=== PATIENT | male | born 1930 | race Caucasian/White ===

== ENCOUNTER → 2016-11-26 | Outpatient (CLI) | payer MEDICARE ==
[2016-11-26 11:37] LABS: Blood Urea Nitrogen 21 mg/dL (9-20); Non-African American GFR(MDRD) 53 (>60 ml/min/1.73 sqM)
== END | disposition home or self-care (01) ==
LOC: LABWHC1 10:53
PROVIDERS: ATTEND Surgery
DX: D49.9 Neoplasm of unspecified behavior of unspecified site (principal)
CPT/HCPCS: 36415; 82378; 82565; 84520

== ENCOUNTER → 2016-11-27 | Outpatient (CLI) | payer MEDICARE ==
--- NOTE | 2016-11-27 15:47 | CT ---
EXAMINATION TYPE: CT abdomen pelvis w con DATE OF EXAM: 11/27/2016 3:10 PM COMPARISON: 06/19/2016 HISTORY: 85-year-old male with no complaints at time of service. Follow up study for cecal CA. TECHNIQUE: Contiguous axial scanning of the abdomen and pelvis following administration of 100 ml Omn ipaque 300 IV contrast. Delayed images through the kidneys and coronal/sagittal reconstructions perf ormed. CT DLP: 1195 mGycm Automated exposure control for dose reduction was used. FINDINGS: Heart is normal size without pericardial effusion. Mitral annular calcifications are noted. Tiny hiatal hernia. Small right-sided pleural effusion remains. Interval complete to near complete healing change of the multiple right-sided rib fractures. There is a new area 1.7 x 4.7 cm subpleural masslike area of cons olidation at the posterior right base. Chronic appearing interstitial changes are also present. Scattered calcified granulomas within the liver without focal liver lesion. Portal venous system is p atent. No biliary ductal dilatation. Gallbladder, adrenal glands, and mildly atrophic pancreas show no gross abnormality. Numerous calcifi ed granulomas within the spleen. Stable 1.1 cm anterior right renal cyst and stable tiny subcentimeter hypodensity anterior left kidne y also likely a cyst but too small for accurate CT characterization. Incidental retroaortic left renal vein. No dilated small bowel, free fluid, or free air. Normal appendix. No clear cecal tumor is identified. Scattered mild to moderate stool. No pericolonic inflammatory change. [id number] atherosclerotic calcifications within the abdominal aorta without aneurysm. No mesenteric or retroperitoneal lymphadenopathy. Soft tissue stranding within the subcutaneous fat of the anterior midabdomen likely relating to subcu taneous injections. Bladder partially distended. Mildly enlarged 4.1 cm prostate gland with central calcifications. No ab normal fluid collection in the pelvis or pelvic lymphadenopathy seen. There is a 7 mm nodular area of enhancement along the right paramedian aspect of the corpus spongiosu m, axial image 86 of uncertain clinical significance. Bones: Degenerative changes at the hips and lower lumbar spine. No osseous destructive process. IMPRESSION: 1. NO DISCRETE CECAL TUMOR SEEN. NO SUSPICIOUS LYMPHADENOPATHY. 2. A 7 MM NODULAR AREA OF ENHANCEMENT ALONG THE CORPUS SPONGIOSUM IS OF UNCERTAIN CLINICAL SIGNIFICAN CE. ATTENTION ON FOLLOW-UP. SOFT TISSUE METASTASIS IS POSSIBLE BUT CONSIDERED UNLIKELY. 3. HEALED TO NEARLY HEALED MULTIPLE RIGHT-SIDED RIB FRACTURES WITH A RESIDUAL SMALL RIGHT PLEURAL EFF USION. THERE IS NEW 4.7 CM AREA OF MASSLIKE CONSOLIDATION AT THE RIGHT BASE JUST ADJACENT THAT COULD REPRESENT AN AREA OF ROUNDED ATELECTASIS. PERSISTENT PULMONARY CONTUSION CONSIDERED UNLIKELY. THIS CA N ALSO BE REASSESSED AT FOLLOW-UP. 4. PRIOR GRANULOMATOUS DISEASE.
== END | disposition home or self-care (01) ==
LOC: RADCTMAIN 14:33
PROVIDERS: ATTEND Surgery
DX: C18.0 Malignant neoplasm of cecum (principal)
CPT/HCPCS: 74177; Q9967

== ENCOUNTER → 2018-06-14 | Outpatient (CLI) | payer MEDICARE ==
[2018-06-14 11:00] LABS: Basophils # (A) 0.1 k/uL (0-0.2); Basophils % (A) 1 %; Eosinophils # (A) 0.4 k/uL (0-0.7); Eosinophils % (A) 5 %; HCT 37.7 % (39.0-53.0); HGB 12.8 gm/dL (13.0-17.5); Lymphocytes # (A) 1.6 k/uL (1.0-4.8); Lymphocytes % (A) 19 %; MCHC 33.9 g/dL (31.0-37.0); MCV 88.7 fL (80.0-100.0); Mean Platelet Volume 7.2; Monocytes # (A) 0.4 k/uL (0-1.0); Monocytes % (A) 5 %; Neutrophils # (A) 6.1 k/uL (1.3-7.7); Neutrophils % (A) 70 %; Platelet Count 255 k/uL (150-450); RBC 4.25 m/uL (4.30-5.90); WBC 8.8 k/uL (3.8-10.6)
[2018-06-14 11:19] LABS: Albumin 3.8 g/dL (3.5-5.0); Calcium 9.5 mg/dL (8.4-10.2); Potassium 5.1 mmol/L (3.5-5.1); Total Bilirubin 0.3 mg/dL (0.2-1.3); Total Protein 7.2 g/dL (6.3-8.2)
[2018-06-14 17:15] LABS: Hemoglobin A1C 6.8 % (4.0-6.0)
== END | disposition home or self-care (01) ==
LOC: LABWHC1 09:39
PROVIDERS: ATTEND Internal Medicine
DX: E11.9 Type 2 diabetes mellitus without complications (principal); E78.5 Hyperlipidemia, unspecified; I10 Essential (primary) hypertension; D50.9 Iron deficiency anemia, unspecified
CPT/HCPCS: 36415; 80053; 80061; 83036; 84443; 85025

== ENCOUNTER 2018-06-19 11:15 | Emergency (ER) | payer MEDICARE ==
[2018-06-19 11:34] VITALS: BP 173/66; PULSE 72; RESP 18; TEMP 97.8
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
--- NOTE | 2018-06-19 13:36 | US ---
EXAMINATION TYPE: US scrotum with doppler. Grayscale and color Doppler Duplex imaging performed of t marianne scrotum. DATE OF EXAM: 06/19/2018 COMPARISON: NONE CLINICAL HISTORY: Pain. EXAM MEASUREMENTS: TESTICLES: Right Testicle: 3.4 x 2.7 x 3.2 cm Left Testicle: 2.6 x 2.2 x 2.6 cm EPIDIDYMIS HEAD: Right Epididymis: 0.8 x 1.1 x 0.7 cm Left Epididymis: 0.7 x 1.1 x 0.7 cm Doppler performed to assess for testicular vascularity; good bilateral color flow and waveforms are s een. There is no evidence of testicular torsion. Presence of hydroceles: Yes, on right Presence of varicoceles: No Overall echogenicity of left testicle is heterogeneous. Left testicle is mildly heterogenous. There is normal vascular flow to both testicles. There is a mod erate right-sided hydrocele. Both epididymides are normal. IMPRESSION: 1. MILD HETEROGENOUS APPEARANCE TO THE LEFT TESTICLE MAY REFLECT EDEMA. UROLOGIC CONSULT WOULD BE SUG GESTED. 2. MODERATE RIGHT-SIDED HYDROCELE.
[2018-06-19 13:44] LABS: Basophils # (A) 0.1 k/uL (0-0.2); Basophils % (A) 1 %; Eosinophils # (A) 0.2 k/uL (0-0.7); Eosinophils % (A) 1 %; HCT 39.5 % (39.0-53.0); HGB 12.9 gm/dL (13.0-17.5); Lymphocytes # (A) 1.5 k/uL (1.0-4.8); Lymphocytes % (A) 13 %; MCH 29.8 pg (25.0-35.0); MCHC 32.5 g/dL (31.0-37.0); MCV 91.5 fL (80.0-100.0); Mean Platelet Volume 7.5; Monocytes # (A) 0.4 k/uL (0-1.0); Monocytes % (A) 4 %; Neutrophils # (A) 9.1 k/uL (1.3-7.7); Neutrophils % (A) 80 %; Platelet Count 240 k/uL (150-450); RBC 4.32 m/uL (4.30-5.90); RDW 12.9 % (11.5-15.5); WBC 11.3 k/uL (3.8-10.6)
[2018-06-19 13:45] LABS: Albumin 3.9 g/dL (3.5-5.0); Calcium 9.7 mg/dL (8.4-10.2); Potassium 5.1 mmol/L (3.5-5.1); Total Bilirubin 0.4 mg/dL (0.2-1.3); Total Protein 7.3 g/dL (6.3-8.2)
[2018-06-19 13:48] LABS: Partial Thromboplastin Time 23.2 sec (22.0-30.0); Prothrombin Time 9.6 sec (9.0-12.0)
[2018-06-19 13:50] LABS: Appearance,Urine Clear (Clear); Bilirubin,Urine Negative (Negative); Blood,Urine Small (Negative); Color,Urine Yellow; Glucose,Urine (UA) 3+ (Negative); Ketones,Urine Negative (Negative); Leukocyte Esterase,Urine Negative (Negative); Mucus,Urine Rare /hpf; Nitrite,Urine Negative (Negative); Protein,Urine 2+ (Negative); RBC,Urine 6 /hpf (0-5); Specific Gravity,Urine 1.015 (1.001-1.035); Urobilinogen,Urine <2.0 mg/dL (<2.0); WBC,Urine 1 /hpf (0-5)
--- NOTE | 2018-06-19 14:04 | XR ---
EXAMINATION TYPE: XR KUB , 2 VIEWS DATE OF EXAM ORDERED: 06/19/2018 HISTORY: abdominal pain. COMPARISON: None. FINDINGS: I suspect a small right-sided pleural effusion. Within the abdomen, the abdominal gas pattern is within normal limits. There is colonic interposition on the left. There is no evidence of obstruction or free air. No unusual calcifications are seen. IMPRESSION: FINDINGS SUSPICIOUS FOR A RIGHT-SIDED PLEURAL EFFUSION.
== END 2018-06-19 14:35 | disposition home or self-care (01) ==
LOC: EC 11:15
DX: N50.82 Scrotal pain (principal); N43.3 Hydrocele, unspecified; S76.211A Strain of adductor muscle, fascia and tendon of right thigh, initial encounter; E11.9 Type 2 diabetes mellitus without complications; E78.5 Hyperlipidemia, unspecified; I10 Essential (primary) hypertension; Z79.4 Long term (current) use of insulin; Z79.899 Other long term (current) drug therapy; X50.9XXA Other and unspecified overexertion or strenuous movements or postures, initial encounter
CPT/HCPCS: 36415; 74018; 76870; 80053; 81001; 82150; 83690; 85025; 85610; 85730; 93975; 99284

== ENCOUNTER 2018-06-22 21:22 | Emergency (ER) | payer MEDICARE ==
[2018-06-22 21:33] VITALS: BP 186/72; PULSE 62; TEMP 97.5
[2018-06-22] MEDS ORDERED: MORPHINE SULFATE 2 MG/ML SYRINGE IVP STA (21:46)
[2018-06-22] MEDS ORDERED: MORPHINE SULFATE 2 MG/ML SYRINGE IM STA (21:54)
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
--- NOTE | 2018-06-22 23:32 | CT ---
EXAMINATION TYPE: CT pelvis w con DATE OF EXAM: 06/22/2018 COMPARISON: 11/27/2016 HISTORY: Prior on A/P on synapse, right sided groin pain CT DLP: 464.70 mGycm Automated exposure control for dose reduction was used. CONTRAST: Performed with IV Contrast, patient injected with 100 mL of Isovue 300. FINDINGS: There is right-sided ventral hernia that is lateral to the umbilicus. This measures 6.5 x 2.5 cm with loops of bowel. I see no evidence of a bowel obstruction related to the hernia. There are some mildl y distended loops of small bowel in the lower abdomen. Abdominal aorta is atheromatous. I see no pelv ic lymphadenopathy. Bladder distends smoothly. 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 I see no fracture. Pelvic ring is intact. There is no inguinal hernia. There is no evide nce of a pelvic mass. Calcification. There is no inguinal hernia. There are some surgical clips aroun d the cecal area which apparently has been partly resected. IMPRESSION: NO EVIDENCE OF MECHANICAL BOWEL OBSTRUCTION. THERE IS RIGHT-SIDED VENTRAL HERNIA THAT CONTAINS SOME L OOPS OF BOWEL. NO EVIDENCE OF ANY SIGNIFICANT INCARCERATION. I do not see a cause for lower pelvic pa in.
[2018-06-22 23:41] VITALS: RESP 16
== END 2018-06-22 23:25 | disposition home or self-care (01) ==
LOC: EC 21:22
DX: S76.811A Strain of other specified muscles, fascia and tendons at thigh level, right thigh, initial encounter (principal); R10.31 Right lower quadrant pain; N50.89 Other specified disorders of the male genital organs; E11.9 Type 2 diabetes mellitus without complications; E78.5 Hyperlipidemia, unspecified; I10 Essential (primary) hypertension; Z79.4 Long term (current) use of insulin; Z79.899 Other long term (current) drug therapy; Z87.438 Personal history of other diseases of male genital organs; Z87.19 Personal history of other diseases of the digestive system; X50.9XXA Other and unspecified overexertion or strenuous movements or postures, initial encounter; Y93.89 Activity, other specified
CPT/HCPCS: 72193; 99284; 96372; J2270; Q9967

== ENCOUNTER → 2018-07-14 | Outpatient (CLI) | payer MEDICARE ==
[2018-07-14 13:56] LABS: Basophils # (A) 0.1 k/uL (0-0.2); Basophils % (A) 1 %; Eosinophils # (A) 0.4 k/uL (0-0.7); Eosinophils % (A) 5 %; HCT 37.9 % (39.0-53.0); HGB 12.6 gm/dL (13.0-17.5); Lymphocytes # (A) 1.7 k/uL (1.0-4.8); Lymphocytes % (A) 22 %; MCH 30.6 pg (25.0-35.0); MCHC 33.4 g/dL (31.0-37.0); MCV 91.7 fL (80.0-100.0); Mean Platelet Volume 7.1; Monocytes # (A) 0.4 k/uL (0-1.0); Monocytes % (A) 6 %; Neutrophils % (A) 66 %; Platelet Count 231 k/uL (150-450); RBC 4.13 m/uL (4.30-5.90); RDW 13.2 % (11.5-15.5); WBC 7.6 k/uL (3.8-10.6)
[2018-07-14 18:53] LABS: Albumin 3.9 g/dL (3.80-4.90); Albumin/Globulin Ratio 1.63 (1.20-2.10); Anion Gap 2.5 mmol/L (4.00-12.00); Calcium 9.2 mg/dL (8.7-10.3); Carbon Dioxide 30.5 mmol/L (21.6-31.8); Globulin 2.4 g/dL (2.1-3.7); Potassium 5.2 mmol/L (3.5-5.5); Total Bilirubin 0.2 mg/dL (0.2-1.2); Total Protein 6.3 g/dL (6.2-8.2)
== END | disposition home or self-care (01) ==
LOC: LABWHC1 12:22
PROVIDERS: ATTEND Internal Medicine
DX: D50.9 Iron deficiency anemia, unspecified (principal); N18.3 Chronic kidney disease, stage 3 (moderate); D63.1 Anemia in chronic kidney disease
CPT/HCPCS: 36415; 80053; 85025

== ENCOUNTER → 2020-07-26 | Outpatient (CLI) | payer MEDICARE ==
[2020-07-26 15:47] LABS: HCT 37.1 % (39.0-53.0); HGB 12.2 gm/dL (13.0-17.5); MCH 29.9 pg (25.0-35.0); MCHC 32.8 g/dL (31.0-37.0); MCV 91.1 fL (80.0-100.0); Mean Platelet Volume 7.7; Platelet Count 279 k/uL (150-450); RBC 4.07 m/uL (4.30-5.90); RDW 13.7 % (11.5-15.5); WBC 8.5 k/uL (3.8-10.6)
[2020-07-26 15:56] LABS: Potassium 4.9 mmol/L (3.5-5.1)
== END | disposition home or self-care (01) ==
LOC: LABPAT 14:59
PROVIDERS: ATTEND Internal Medicine
DX: Z03.818 Encounter for observation for suspected exposure to other biological agents ruled out (principal); I35.0 Nonrheumatic aortic (valve) stenosis
CPT/HCPCS: 36415; 80051; 82565; 84520; 85027

== ENCOUNTER → 2020-08-08 | Day surgery (SDC) | payer MEDICARE ==
[2020-07-31 11:53] VITALS: BMI 26.8
[~2020-08-08] MED LIST: ALPRAZolam 0.25 MG TAB PO PRN; ALPRAZolam 0.5 MG TAB PO PRN; ASPIRIN 325 MG TAB PO STA; ASPIRIN 81 MG ONE; ASPIRIN 81 MG PO ONE; ATORVASTATIN 80 MG TAB PO STA; HEPARIN SODIUM 1,000 UN/ML (10ML VL) ONE; IOPAMIDOL-370 125ML BTL INJ ONE; IV FLUID CONTINUATION 700 ML IV ONE; LIDOCAINE 1% INJ 10MG/ML (20 ML MDV) SQ ONE; MIDAZOLAM 2 MG/2 ML VIAL IV ONE; NITROGLYCERIN SL TABS 0.4 MG TAB SUBLINGUAL PRN; RX INFO: IV CONTRAST WAS GIVEN 1 EACH MISC MISCELLANE PRN; SODIUM CHLORIDE 0.9% 1,000 ML IV ONE; SODIUM CHLORIDE 0.9% 1,000 ML IV SCH; SODIUM CHLORIDE 0.9% 1,000 ML in EMPTY BAG 1 BAG IV ONE; fentaNYL (PF) 50 MCG/ML 2 ML AMP IV ONE; fentaNYL (PF) 50 MCG/ML 2 ML AMP ONE
[2020-08-08 06:34] VITALS: TEMP 98.3
[2020-08-08 06:36] LABS: Glucose,Whole Blood 98 mg/dL (75-99)
[2020-08-08] MEDS: fentaNYL (PF) 50 MCG/ML 2 ML AMP IV ONE ×2 (07:26→08:35)
--- NOTE | 2020-08-08 07:57 | P.TEE ---
Description of Procedure(s): Procedure performed: Transesophageal Echocardiogram with color flow doppler, pulsed wave doppler and continuous wave doppler, moderate conscious sedation Moderate conscious sedation: Moderate conscious sedation was supplied with direct supervision of myself using Versed and Fentanyl. Complications: none Indications: Severe symptomatic aortic stenosis History: Patient is a pleasant 89-year-old male with history of chronic kidney disease, prior hypertension since off of medications, hyperlipidemia off of medications and severe aortic stenosis who has recently been developing symptoms of shortness of breath over the last 1 month. He had 2-D echo performed which showed severe aortic stenosis and therefore YVES was recommended for evaluation for TAVR. PROCEDURE: After the risks, benefits and alternatives of the above mentioned procedure was explained in detail with the patient, informed consent was obtained. Patient was brought to the lab in a fasting state. Patient was given IV Versed and Fentanyl for sedation. The throat was sprayed with Hurricane to anesthetize the throat. A lubricated Omni probe was then introduced into the esophagus and stomach and multiple views were obtained. 2D echo with color flow doppler, pulsed wave doppler and continuous wave doppler was utilized. Agitated saline bubbles were injected to assess for any intra-atrial shunt. The probe was then removed. Patient tolerated the procedure well. Patient was transferred to the post procedure area in stable and satisfactory condition. FINDINGS: 1. The aortic valve is severely calcified with severe decrease leaflet excursion. There is severe aortic stenosis with Vmax 5.1m/s and mean gradient of 63mmHg. There is mild to moderate eccentric aortic insufficiency. 2. The mitral valve appears be normal with mild mitral regurgitation. 3. Tricuspid valve appears to be normal with trace check acid regurgitation. 4. The interatrial septum is intact. No evidence of PFO. 5. Left atrial appendage is free of clot. 6. Left ventricular size and function appear to be normal with ejection fraction 60% without wall motion abnormalities.
[2020-08-08] MEDS: MIDAZOLAM 2 MG/2 ML VIAL IV ONE ×2 (08:03→08:36)
[2020-08-08 08:49] LABS: O2 Sat Blood Gas 76.4 %
[2020-08-08 08:55] LABS: O2 Sat Blood Gas 55.8 %
--- NOTE | 2020-08-08 09:22 | P.CARDCATH ---
Description of Procedure: PROCEDURES PERFORMED: Left heart catheterization, bilateral coronary angiography, right heart catheterization, ultrasound guidance INDICATION: Severe symptomatic aortic stenosis HISTORY: Patient is a pleasant 89-year-old male with history of prior hypertension since off of medications, hyperlipidemia off of medications, chronic kidney disease and severe aortic stenosis who has been very active up until approximately 1 month ago when he started noticing shortness breath. He had 2-D echo performed which showed severe aortic stenosis and therefore left and right heart catheterization were recommended. Risks of possible kidney injury were explained in detail with patient and his daughter. CONSENT:I have discussed the risks, benefits and alternative therapies for the above-mentioned procedure and for both sedation/analgesia as well as necessary blood product administration, if indicated, as they pertain to this patient. The patient has indicated understanding and acceptance of the risks and procedures discussed. PROCEDURE: After the risks, benefits and alternatives of the above mentioned procedure explained in detail with the patient, informed consent was obtained. Patient was taken to the catheterization lab and prepped and draped in usual fashion. 1% lidocaine was used to anesthetize the right radial artery. A 6- [place] Konger sheath was placed in the right radial artery using modified Seldinger technique. 1% lidocaine was used to anesthetize the right brachial area. A 6- [place]er sheath was placed in the right brachial vein using modified Seldinger technique and ultrasound guidance. Right heart catheterization was performed with a 6-Hong Konger Union Star-Joel catheter which was inserted in the right atrium, right ventricle, pulmonary artery and pulmonary capillary wedge position with pressure measurements obtained. A pulmonary artery saturation and right radial saturation were obtained for cardiac output calculation. Left coronary angiography was performed with a 6-H[place] Konger JL 3.5 catheter and right coronary angiography was performed with a 6-H[place] Konger JR5 catheter in various views. There was large amount of innominate tortuosity with some difficulty manipulating catheters requiring the support of a 0.035 Amplatz super stiff wire for exchanges. The 6-H[place] Konger JR 5 incidentally fell into the left ventricle and pressure measurements were obtained. The right radial sheath was removed and a TR band was placed with hemostasis achieved. The patient tolerated the procedure however did have agitation with frequent movement requiring restraints. Patient was transported back to the post catheterization holding area in stable condition. Conscious Sedation: Patient was monitored under the direct supervision of vision of myself for conscious sedation using Versed and fentanyl for a total duration of 43 minutes. Patient did have increased agitation towards the end of the procedure with apparent paradoxical response to sedation. RIGHT HEART CATHETERIZATION: RA: 5 RV: 50/1 PA: 53/12 (26mmHG) PCWP: 23 mmHg Ao: 147/57 LV: 216/36 (LVEDP 42) Pullback across aortic valve: peak to peak of 69mmHg PA O2 sat: 76% Right radial O2 sat: 96% Cardiac output: 3.43 L/min Cardiac index: 1.91 L/min/m2 SELECTIVE CORONARY ARTERIOGRAPHY: LEFT MAIN: The left main is a large caliber vessel which bifurcates into the LAD and circumflex. There is 40% distal left main stenosis. LEFT ANTERIOR DESCENDING CORONARY ARTERY: LAD is a large caliber vessel which wraps around to the apex. There is a heavily calcified 80% mid LAD stenosis involving a moderate caliber diagonal 1 branch. The diagonal 1 branch has 80- 90% ostial stenosis at this bifurcation. There is distal LAD 40% stenosis. LEFT CIRCUMFLEX CORONARY ARTERY: Left circumflex is a moderate caliber vessel with ostial 50% stenosis and mild 30-40% stenosis of the distal circumflex. RIGHT CORONARY ARTERY: The right coronary artery is a moderate caliber vessel which gives off a PDA and PLV branch and is the dominant vessel. There is mild mid RCA 30% stenosis. FINAL IMPRESSION: 1. CAD as described above including left main distal 40% stenosis, mid LAD heavily calcified 80% bifurcation stenosis with diagonal 1 80-90% stenosis, ostial circumflex 50% stenosis. 2. Severe aortic stenosis with peak to peak gradient of 69mmHg 3. Decreased cardiac output/ cardiac index 4. Elevated left sided filling pressures PLAN: 1. Aggressive risk factor modification per most recent ACC/AHA guidelines. Patient stopped taking a statin previously due to his age. 2. Ideally PCI of LAD pre TAVR however patient was agitated with apparent paradoxical response to sedation at the end of the procedure. Additionally patient has risk of RUDDY with further contrast. Continue evalutation for TAVR with risks vs benefits of pre TAVR PCI to be further evaluated.
[2020-08-08 09:23] VITALS: RESP 16
[2020-08-08 12:58] VITALS: BP 130/53; PULSE 55
== END ==
LOC: CATHCVL 06:10
PROVIDERS: ATTEND Internal Medicine
DX: I25.10 Atherosclerotic heart disease of native coronary artery without angina pectoris (principal); I25.84 Coronary atherosclerosis due to calcified coronary lesion; I35.0 Nonrheumatic aortic (valve) stenosis; I10 Essential (primary) hypertension; F17.290 Nicotine dependence, other tobacco product, uncomplicated; E11.9 Type 2 diabetes mellitus without complications; E78.5 Hyperlipidemia, unspecified; I12.9 Hypertensive chronic kidney disease with stage 1 through stage 4 chronic kidney disease, or unspecified chronic kidney disease; E11.22 Type 2 diabetes mellitus with diabetic chronic kidney disease; N18.9 Chronic kidney disease, unspecified; Z79.4 Long term (current) use of insulin; Z79.899 Other long term (current) drug therapy
CPT/HCPCS: 93312; 93320; 93325; 93460; 85018; 82810; C1769 ×5; C1887; C1751; C1894 ×3; J2250; J2001; J3010; J1644; Q9967

== ENCOUNTER 2020-08-11 09:05 | Inpatient (IN) | payer MEDICARE ==
[2020-08-11] MEDS ORDERED: FUROSEMIDE 10 MG/ML 4 ML VIAL IV STA ×2 (09:12→15:16)
[2020-08-11] MEDS ORDERED: IPRATROPIUM-ALBUTEROL 3 ML NEB INHALATION STA (09:12)
[2020-08-11] MEDS ORDERED: methylPREDNISolone SOD SUCCI 125 MG/2 ML VIAL IV STA (09:12)
[2020-08-11 09:23] VITALS: TEMP 97.9
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
[2020-08-11 09:38] LABS: Basophils # (A) 0.1 k/uL (0-0.2); Basophils % (A) 1 %; Eosinophils % (A) 0 %; HCT 35.3 % (39.0-53.0); HGB 11.4 gm/dL (13.0-17.5); Lymphocytes # (A) 0.6 k/uL (1.0-4.8); Lymphocytes % (A) 4 %; MCH 29.5 pg (25.0-35.0); MCHC 32.2 g/dL (31.0-37.0); MCV 91.6 fL (80.0-100.0); Mean Platelet Volume 8.1; Monocytes # (A) 0.5 k/uL (0-1.0); Monocytes % (A) 4 %; Neutrophils # (A) 12.1 k/uL (1.3-7.7); Neutrophils % (A) 90 %; Platelet Count 283 k/uL (150-450); RBC 3.86 m/uL (4.30-5.90); RDW 13.7 % (11.5-15.5); WBC 13.4 k/uL (3.8-10.6)
[2020-08-11 09:47] LABS: Albumin 3.5 g/dL (3.5-5.0); Calcium 8.8 mg/dL (8.4-10.2); Magnesium 2.2 mg/dL (1.6-2.3); Total Bilirubin 0.5 mg/dL (0.2-1.3)
[2020-08-11 09:49] LABS: INR 0.9 (<1.2); Partial Thromboplastin Time 25.5 sec (22.0-30.0); Prothrombin Time 9.5 sec (9.0-12.0)
[2020-08-11] MEDS ORDERED: DILTIAZEM DRIP BOLUS FROM BAG 1 MG SOLN IV ONE ×2 (10:01→16:56)
--- NOTE | 2020-08-11 10:03 | XR ---
EXAMINATION TYPE: XR chest 1V portable DATE OF EXAM: 08/11/2020 Comparison: 07/04/2016 Clinical History: 89-year-old male shortness of breath, Dyspnea Findings: Heart borderline enlarged. Extensive consolidation mid and lower lungs. Possible small right effusion . Impression: Extensive mid and lower lung consolidation bilaterally. Possible small right effusion. Correlate for multifocal pneumonia or atypical pulmonary edema.
[2020-08-11 10:04] LABS: Potassium 6.2 mmol/L (3.5-5.1)
[2020-08-11] MEDS ORDERED: DILTIAZEM 125 MG in SODIUM CHLORIDE 0.9% 100 ML IV SCH (10:15)
[2020-08-11] MEDS ORDERED: cefTRIAXone IN SWFI 1,000 MG/10 ML SYRINGE IVP STA (10:19)
[2020-08-11] MEDS ORDERED: INSULIN REGULAR 100 UNIT/ML VIAL IV ONE (10:19)
[2020-08-11] MEDS ORDERED: SODIUM POLYSTYRENE SULFONATE 15 GM/60 ML BOTTLE PO STA (10:19)
[2020-08-11] MEDS ORDERED: CALCIUM CHLORIDE 100 MG/ML 10 ML SYRINGE IVP STA (10:20)
[2020-08-11] MEDS ORDERED: DEXTROSE 50% SYRINGE 50 ML IVP STA (10:20)
[2020-08-11] MEDS ORDERED: SODIUM CHLORIDE 0.9% 1,000 ML IV STA (10:28)
--- NOTE | 2020-08-11 12:12 | CT ---
EXAMINATION TYPE: CT brain avi membreno DATE OF EXAM: 08/11/2020 COMPARISON: 06/28/2016 brain HISTORY: 89-year-old male with confusion, Altered mental status, possible trauma CT DLP: 1365.9 mGycm Automated exposure control for dose reduction was used. Technique: Examination of the head was done in axial plane without intravenous contrast. Coronal and sagittal reconstructions performed. CT of the cervical spine was obtained in axial plane without intravenous injection of contrast mater ial. Coronal and sagittal reformatted images were obtained from the axial views for evaluation of f ractures, spinal alignment and canal. FINDINGS: Head: There is no evidence of acute intracranial hemorrhage, acute ischemic changes, mass, mass-effect, or extra-axial fluid collection. There is no effacement of cerebral sulci or basal subarachnoid cister ns. There is no hydrocephalus. There is no midline shift. Burk-white matter distinction is preserv ed. Mild to moderate mucosal thickening floors of the maxillary sinuses and mild mucosal thickening ethmo id air cells. Mastoid air cells well pneumatized. Orbits and globes are intact. Mild to moderate patchy white matter hypodensities in both cerebral hemispheres, unchanged from 2016. Cervical spine: Motion artifacts. No craniocervical junction abnormality, predental space widening, or prevertebral s oft tissue swelling. Degenerative changes at the C1 dens articulation. Moderate to severe disc/endplate degenerative change at C5-C7 levels with discussed by complex format ion. Multilevel facet and uncovertebral joint arthropathy. Grade 1 anterolisthesis C4-C5 and C7-T1. No acute fracture is clearly seen allowing for the motion artifacts. Moderate neural foraminal stenosis throughout, more severe on the left at C4-C5 and moderate to sever e on the right at C5-C6 and on both sides at C6/C7. There seems to be small layering effusions and septal lines in the upper lungs. Sagittal and coronal reformatted images confirm above findings. COMBINED IMPRESSION: 1. [id number] patchy changes of chronic small vessel ischemic disease. No acute intracranial ab normality seen. 2. Moderate to advanced multilevel spondylotic change with degenerative grade 1 anterolisthesis C4-C5 and C7-T1. No acute fracture seen. 3. Septal lines in the visualized upper lungs with layering pleural effusions. Correlate for developi ng pulmonary edema. 4. Mild chronic maxillary and ethmoid sinus disease.
[2020-08-11] MEDS ORDERED: NITROGLYCERIN SL TABS 0.4 MG TAB SUBLINGUAL PRN (13:47)
[2020-08-11] MEDS ORDERED: HEPARIN SODIUM,PORCINE 5,000 UNIT/ML 1 ML VIAL IV ONE (13:47)
[2020-08-11] MEDS ORDERED: SODIUM CHLORIDE 0.9% 1,000 ML IV SCH (14:00)
[2020-08-11] MEDS ORDERED: HEPARIN SOD,PORK IN 0.45% NACL 25,000 UNIT in 0.45% NACL 1 250ML.BAG IV SCH (14:00)
[2020-08-11 15:16] LABS: Amorphous Sediment,Urine Rare /hpf; Appearance,Urine Cloudy (Clear); Bacteria,Urine Occasional /hpf; Bilirubin,Urine Negative (Negative); Blood,Urine Moderate (Negative); Color,Urine Light Yellow; Glucose,Urine (UA) Negative (Negative); Ketones,Urine Negative (Negative); Leukocyte Esterase,Urine Negative (Negative); Nitrite,Urine Negative (Negative); Protein,Urine 1+ (Negative); RBC,Urine <1 /hpf (0-5); Specific Gravity,Urine 1.009 (1.001-1.035); Squamous Epithelial Cell,Urine <1 /hpf (0-4); Urobilinogen,Urine <2.0 mg/dL (<2.0); WBC,Urine 2 /hpf (0-5)
[2020-08-11] MEDS: ALBUTEROL HFA INHALER INHALATION SCH ×2 (16:20→17:14)
[2020-08-11] MEDS ORDERED: INSULIN ASPART (NovoLOG) 100 UNIT/ML VIAL SQ SCH (17:30)
[2020-08-11] MEDS ORDERED: LORazepam 2 MG/ML INJ IV STA ×2 (18:33)
[2020-08-11 21:47] VITALS: BP 107/61; PULSE 55; RESP 24
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
--- NOTE | 2020-08-11 22:05 | ED ---
Medical Decision Making - Medical Decision Making Called to bedside by nurse because patient appeared to have . Pt noted to have asystole on monitor by nursing. Pupils fixed and dilated. No heart sounds on auscultation. No response to noxious stimuli. Pt pronounced at 2136. - Lab Data Result diagrams: 08/11/20 09:26 08/11/20 09:26 Lab Results 08/11/20 08/11/20 08/11/20 Range/Units 09: 09: 09:26 WBC 13.4 H (3.8-10.6) k/uL RBC 3.86 L (4.30-5.90) m/uL Hgb 11.4 L (13.0-17.5) gm/dL Hct 35.3 L (39.0-53.0) % MCV 91.6 (80.0-100.0) fL MCH 29.5 (25.0-35.0) pg MCHC 32.2 (31.0-37.0) g/dL RDW 13.7 (11.5-15.5) % Plt Count 283 (150-450) k/uL MPV 8.1 Neutrophils % 90 % Lymphocytes % 4 % Monocytes % 4 % Eosinophils % 0 % Basophils % 1 % Neutrophils # 12.1 H (1.3-7.7) k/uL Lymphocytes # 0.6 L (1.0-4.8) k/uL Monocytes # 0.5 (0-1.0) k/uL Eosinophils # 0.0 (0-0.7) k/uL Basophils # 0.1 (0-0.2) k/uL PT 9.5 (9.0-12.0) sec INR 0.9 (<1.2) APTT 25.5 (22.0-30.0) sec Sodium 141 (137-145) mmol/L Potassium 6.2 H* (3.5-5.1) mmol/L Chloride 109 H (98-107) mmol/L Carbon Dioxide 14 L (22-30) mmol/L Anion Gap 18 mmol/L BUN 49 H (9-20) mg/dL Creatinine 2.95 H (0.66-1.25) mg/dL Est GFR (CKD-EPI)AfAm 21 (>60 ml/min/1.73 sqM) Est GFR (CKD-EPI)NonAf 18 (>60 ml/min/1.73 sqM) Glucose 138 H (74-99) mg/dL Lactic Ac Sepsis Rflx Plasma Lactic Acid Kaleb (0.7-2.0) mmol/L Calcium 8.8 (8.4-10.2) mg/dL Magnesium 2.2 (1.6-2.3) mg/dL Total Bilirubin 0.5 (0.2-1.3) mg/dL AST 89 H (17-59) U/L ALT 53 H (4-49) U/L Alkaline Phosphatase 63 (38-126) U/L Creatine Kinase 219 H (55-170) U/L Troponin I (0.000-0.034) ng/mL NT-Pro-B Natriuret Pep pg/mL Total Protein 7.0 (6.3-8.2) g/dL Albumin 3.5 (3.5-5.0) g/dL Coronavirus (PCR) (Not Detectd) Influenza Type A RNA (Not Detectd) Influenza Type B (PCR) (Not Detectd) 08/11/20 08/11/20 08/11/20 Range/Units 09:26 09:26 09:26 WBC (3.8-10.6) k/uL RBC (4.30-5.90) m/uL Hgb (13.0-17.5) gm/dL Hct (39.0-53.0) % MCV (80.0-100.0) fL MCH (25.0-35.0) pg MCHC (31.0-37.0) g/dL RDW (11.5-15.5) % Plt Count (150-450) k/uL MPV Neutrophils % % Lymphocytes % % Monocytes % % Eosinophils % % Basophils % % Neutrophils # (1.3-7.7) k/uL Lymphocytes # (1.0-4.8) k/uL Monocytes # (0-1.0) k/uL Eosinophils # (0-0.7) k/uL Basophils # (0-0.2) k/uL PT (9.0-12.0) sec INR (<1.2) APTT (22.0-30.0) sec Sodium (137-145) mmol/L Potassium (3.5-5.1) mmol/L Chloride (98-107) mmol/L Carbon Dioxide (22-30) mmol/L Anion Gap mmol/L BUN (9-20) mg/dL Creatinine (0.66-1.25) mg/dL Est GFR (CKD-EPI)AfAm (>60 ml/min/1.73 sqM) Est GFR (CKD-EPI)NonAf (>60 ml/min/1.73 sqM) Glucose (74-99) mg/dL Lactic Ac Sepsis Rflx Plasma Lactic Acid Kaleb 9.1 H* (0.7-2.0) mmol/L Calcium (8.4-10.2) mg/dL Magnesium (1.6-2.3) mg/dL Total Bilirubin (0.2-1.3) mg/dL AST (17-59) U/L ALT (4-49) U/L Alkaline Phosphatase (38-126) U/L Creatine Kinase (55-170) U/L Troponin I 5.730 H* (0.000-0.034) ng/mL NT-Pro-B Natriuret Pep 58564 pg/mL Total Protein (6.3-8.2) g/dL Albumin (3.5-5.0) g/dL Coronavirus (PCR) (Not Detectd) Influenza Type A RNA (Not Detectd) Influenza Type B (PCR) (Not Detectd) 08/11/20 08/11/20 08/11/20 Range/Units 09:35 09:49 12:15 WBC (3.8-10.6) k/uL RBC (4.30-5.90) m/uL Hgb (13.0-17.5) gm/dL Hct (39.0-53.0) % MCV (80.0-100.0) fL MCH (25.0-35.0) pg MCHC (31.0-37.0) g/dL RDW (11.5-15.5) % Plt Count (150-450) k/uL MPV Neutrophils % % Lymphocytes % % Monocytes % % Eosinophils % % Basophils % % Neutrophils # (1.3-7.7) k/uL Lymphocytes # (1.0-4.8) k/uL Monocytes # (0-1.0) k/uL Eosinophils # (0-0.7) k/uL Basophils # (0-0.2) k/uL PT (9.0-12.0) sec INR (<1.2) APTT (22.0-30.0) sec Sodium (137-145) mmol/L Potassium (3.5-5.1) mmol/L Chloride (98-107) mmol/L Carbon Dioxide (22-30) mmol/L Anion Gap mmol/L BUN (9-20) mg/dL Creatinine (0.66-1.25) mg/dL Est GFR (CKD-EPI)AfAm (>60 ml/min/1.73 sqM) Est GFR (CKD-EPI)NonAf (>60 ml/min/1.73 sqM) Glucose (74-99) mg/dL Lactic Ac Sepsis Rflx Y Plasma Lactic Acid Kaleb 1.7 (0.7-2.0) mmol/L Calcium (8.4-10.2) mg/dL Magnesium (1.6-2.3) mg/dL Total Bilirubin (0.2-1.3) mg/dL AST (17-59) U/L ALT (4-49) U/L Alkaline Phosphatase (38-126) U/L Creatine Kinase (55-170) U/L Troponin I (0.000-0.034) ng/mL NT-Pro-B Natriuret Pep pg/mL Total Protein (6.3-8.2) g/dL Albumin (3.5-5.0) g/dL Coronavirus (PCR) Detected A (Not Detectd) Influenza Type A RNA (Not Detectd) Influenza Type B (PCR) (Not Detectd) 08/11/20 Range/Units 12:41 WBC (3.8-10.6) k/uL RBC (4.30-5.90) m/uL Hgb (13.0-17.5) gm/dL Hct (39.0-53.0) % MCV (80.0-100.0) fL MCH (25.0-35.0) pg MCHC (31.0-37.0) g/dL RDW (11.5-15.5) % Plt Count (150-450) k/uL MPV Neutrophils % % Lymphocytes % % Monocytes % % Eosinophils % % Basophils % % Neutrophils # (1.3-7.7) k/uL Lymphocytes # (1.0-4.8) k/uL Monocytes # (0-1.0) k/uL Eosinophils # (0-0.7) k/uL Basophils # (0-0.2) k/uL PT (9.0-12.0) sec INR (<1.2) APTT (22.0-30.0) sec Sodium (137-145) mmol/L Potassium (3.5-5.1) mmol/L Chloride (98-107) mmol/L Carbon Dioxide (22-30) mmol/L Anion Gap mmol/L BUN (9-20) mg/dL Creatinine (0.66-1.25) mg/dL Est GFR (CKD-EPI)AfAm (>60 ml/min/1.73 sqM) Est GFR (CKD-EPI)NonAf (>60 ml/min/1.73 sqM) Glucose (74-99) mg/dL Lactic Ac Sepsis Rflx Plasma Lactic Acid Kaleb (0.7-2.0) mmol/L Calcium (8.4-10.2) mg/dL Magnesium (1.6-2.3) mg/dL Total Bilirubin (0.2-1.3) mg/dL AST (17-59) U/L ALT (4-49) U/L Alkaline Phosphatase (38-126) U/L Creatine Kinase (55-170) U/L Troponin I (0.000-0.034) ng/mL NT-Pro-B Natriuret Pep pg/mL Total Protein (6.3-8.2) g/dL Albumin (3.5-5.0) g/dL Coronavirus (PCR) (Not Detectd) Influenza Type A RNA Not Detected (Not Detectd) Influenza Type B (PCR) Not Detected (Not Detectd) Disposition Clinical Impression: Non-STEMI (non-ST elevated myocardial infarction), Rapid atrial fibrillation, Acute respiratory distress, Acute kidney injury, CHF (congestive heart failure), COVID-19, Hyperkalemia Disposition: ADMITTED IP TO THIS HOSP Condition: Serious Procedures - [place] Protocol (Time Out) Nurse: Cata Workman
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
[2020-08-11] MEDS ORDERED: FUROSEMIDE 10 MG/ML 4 ML VIAL IV SCH (23:00)
[2020-08-12] MEDS: ALBUTEROL HFA INHALER INHALATION SCH (01:19)
[2020-08-12] MEDS ORDERED: dexAMETHasone 2 MG TAB PO SCH (09:00)
[2020-08-12] MEDS ORDERED: PIOGLITAZONE 15 MG TAB PO SCH (09:00)
[2020-08-12] MEDS ORDERED: DOCUSATE 100 MG CAP PO SCH (09:00)
[2020-08-12] MEDS ORDERED: CHOLECALCIFEROL 1,000 UNIT TAB PO SCH (09:00)
[2020-08-12] MEDS ORDERED: ASPIRIN 325 MG TAB PO SCH (09:00)
[2020-08-12] MEDS ORDERED: ASCORBIC ACID 500 MG TAB PO SCH (09:00)
[2020-08-12] MEDS ORDERED: INSULIN DETEMIR (LEVEMIR) 100 UNIT/ML SYR SQ SCH (09:00)
--- NOTE | 2020-08-16 13:37 | CDI ---
Documentation Clarification Form Mortality Query Date: 08/16/2020 01:29:58 PM From: Isaura Ramos RN, CCDS Admit Date: 08/11/2020 01:47:00 PM Patient Name: Ervin Ricks Visit Number: [id number] Discharge Date: 08/12/2020 12:24:00 AM ATTENTION: The Clinical Documentation Specialists (CDI) and [facility] Coding Staff appreciate your assistance in clarifying documentation. Please respond to the clarification below the line at the bottom and electronically sign. The CDI & [facility] Coding staff will review the response and follow-up if needed. Please note: Queries are made part of the Legal Health Record. If you have any questions, please contact the author of this message via ITS. Dr. Ron Ríos The patient presented with respiratory distress requiring BIPAP support. Please provide additional clarification to accurately reflect patient SOI/ROM. History/Risk Factors: Tobacco use: current smoker [facility] Clinical Indicators: 08/11 H&P and D/C Summary: significant dyspnea and shortness of breath started around 10 PM last night when he went to his bed family found him in the morning on the floor of his bedroom in quite good respiratory distress with significant altered mental status and decreased level of consciousness at the time was seen surprisingly patient was in A. fib with RVR, significantly elevated troponin with non-ST MS, also tested positive for Covid 19.acute respiratory distress: Secondary to non-ST MS, acute pulmonary edema, fluid overload and congestive heart failure, severe aortic stenosis, and Covid 19 pneumonitis. We'll continue BiPAP along with high flow O2 for now continue updraft treatment pulmonary consultation patient be admitted to the ICU. 08/11 0912 Vital signs: temp 97.9, HR 135, RR 36, B/P 134/107, Spo2 95% on partial nonrebreather. Pulse oximetry: 90-100% Spo2 on 70-100% BIPAP 08/11 Lung/Breathing assessment: RESPIRATORY: Decreased breath sound bilaterally with significant dyspnea and tachypnea." Treatment: Breathing TX: Ventolin HFA q 4 hrs. Continuous Pulse ox O2/BiPap: 12L NRB increased to 70% Bipap increased to 100% Bipap In your professional opinion, can you please clarify if these findings signify one of the following conditions? xxAcute Respiratory Failure Acute on Chronic Respiratory Failure Chronic Respiratory Failure Other Diagnosis, please specify Unable to determine Specificity: If known, further specify (if known): With hypercapnia? (pCO2 >50 and pH <7.35) With hypoxia? (pO2 <60 mm Hg or SpO2 <91% on room air) (Last Query Form Revision: May 2019) MTDD
--- NOTE | 2020-08-16 13:59 | CDI ---
Documentation Clarification Form Mortality Query Date: 08/16/2020 01:48:26 PM From: Isaura Ramos RN, CCDS Admit Date: 08/11/2020 01:47:00 PM Patient Name: Ervin Ricks Visit Number: [id number] Discharge Date: 08/12/2020 12:24:00 AM ATTENTION: The Clinical Documentation Specialists (CDI) and [facility] Coding Staff appreciate your assistance in clarifying documentation. Please respond to the clarification below the line at the bottom and electronically sign. The CDI & [facility] Coding staff will review the response and follow-up if needed. Please note: Queries are made part of the Legal Health Record. If you have any questions, please contact the author of this message via ITS. Dr. Ron Ríos CHF is documented in the H&P and D/C Summary and requires further specificity to accurately reflect patient SOI/ROM. History/Risk Factors: DM, Increasing SOB Clinical Indicators: 08/11 H&P and D/C Summary: "AD post heart catheter in 08/08/2020 with finding consistent with 80% bifurcation stenosis with diagonal 80-90% stenosis and circumflex of 50% stenosis with severe aortic stenosis with peak gradient of 69 mmHg with significant decreased cardiac output.Patient also had transesophageal echocardiogram the same day 08/08/[address] Anderson finding consistent with severe aortic stenosis with mean, gradient of 63 mmHg, acute pulmonary edema, fluid overload and congestive heart failure, severe aortic stenosis" VS/Pulse OX: HR 135, RR 36, B/P 134/107, Spo2 95% on partial NRB 08/11 BNP: 93471 12/10/15 Echocardiogram Results: EF 50-55%, moderate concentric LVH, mild mitral and tricuspid regurg 08/11 Chest X Ray: Extensive mid and lower lung consolidation bilaterally. Possible small right effusion, Treatment: 08/11 0912 & 1516 Lasix 40 mg IVP 08/11 1028 1L IVF bolus In your professional opinion, can you please clarify the acuity and type of CHF if known? xSystolic Heart Failure: xxAcute Chronic Acute on Chronic Diastolic Heart Failure: Acute Chronic Acute on Chronic Systolic & Diastolic Heart Failure: Acute Chronic Acute on Chronic Heart Failure Unable to Determine Other, please specify (Last Revision: December 2017) MTDD
--- NOTE | 2020-08-16 14:15 | CDI ---
Documentation Clarification Form Mortality Review Date: 08/16/2020 02:07:36 PM From: Isaura Ramos RN, CCDS Admit Date: 08/11/2020 01:47:00 PM Patient Name: Ervin Ricks Visit Number: [id number] Discharge Date: 08/12/2020 12:24:00 AM ATTENTION: The Clinical Documentation Specialists (CDI) and [facility] Coding Staff appreciate your assistance in clarifying documentation. Please respond to the clarification below the line at the bottom and electronically sign. The CDI & [facility] Coding staff will review the response and follow-up if needed. Please note: Queries are made part of the Legal Health Record. If you have any questions, please contact the author of this message via ITS. Dr. Ron Ríos The patient presented with SOB and decreased LOC, positive for COVID 19 Pneumonia. History/Risk Factors: DM, aortic stenosis Clinical Indicators: 08/11 WBC 13.4 08/11 Lactic acid: 9.1/1.7 Blood cultures: no growth 08/11 0912 Vitals signs on admission: Temp 97.9, HR 135, RR 36 SOB, Labored, B/P 134/107, Spo2 95% on partial NRB Other Clinical Indicators: RUDDY with ATN Documented Infectious Process: Covid 19 pneumonia Treatment: Antibiotics: 2gm IVP Rocephin x 1 dose 08/11 IV Bolus: 1L 0.9% NS In your professional opinion, please clarify if these findings signify one of the following conditions, whether the condition is POA, and cause, if known: Condition xxSepsis Severe Sepsis Septic Shock Other, please specify Unable to determine Present on Admission xxYes No Identify the (suspected) organism Link or clarify if there is associated (due to/with): xxOrgan failure Shock SIRS Criteria (2 or more of the following may indicate SIRS): -Temperature < 96.8F (36C) or > 101.0F (38.3C) -Heart Rate > 90 bpm -Respiratory Rate > 20 breaths/min or PaCO2 < 32 mmHg -White Blood Cell Count > 12,000 or < 4,000 cells/mm3 or > 10% bands -Lactate >2.0 mmol/L (>4.0 is equivalent to septic shock) (Last Revision: December 2017) MTDD
--- NOTE | 2020-08-16 14:15 | CDI ---
Documentation Clarification Form Mortality Query Date: 08/16/2020 02:00:01 PM From: Isaura Ramos RN, CCDS Admit Date: 08/11/2020 01:47:00 PM Patient Name: Ervin Ricks Visit Number: [id number] Discharge Date: 08/12/2020 12:24:00 AM ATTENTION: The Clinical Documentation Specialists (CDI) and [facility] Coding Staff appreciate your assistance in clarifying documentation. Please respond to the clarification below the line at the bottom and electronically sign. The CDI & [facility] Coding staff will review the response and follow-up if needed. Please note: Queries are made part of the Legal Health Record. If you have any questions, please contact the author of this message via ITS. Dr. Ron Ríos Atrial Fibrillation RVR is documented in the H&P and D/C Summary and requires further specificity to accurately reflect patient SOI/ROM. History/Risk Factors: DM, Heart murmur, NSTEMI this admission Clinical Indicators: 08/11 ED Note: "Non-STEMI (non-ST elevated myocardial infarction), Rapid atrial fibrillation, acute respiratory distress, acute kidney injury, CHF (congestive heart failure), COVID-19, Hyperkalemia." 08/11 H&P: "AD post heart catheter in 08/08/2020 with finding consistent with 80% bifurcation stenosis with diagonal 80-90% stenosis and circumflex of 50% stenosis with severe aortic stenosis with peak gradient of 69 mmHg with significant decreased cardiac output.Patient also had transesophageal echocardiogram the same day 08/08/[address] Anderson finding consistent with severe aortic stenosis with mean, gradient of 63 mmHg, A. fib with RVR: Patient was started on heparin drip and Cardizem titrate medication if no response patient might require amiodarone." 08/11 EKG: Atrial fibrillation with rapid ventricular response rate of 141 QRS 74 QT since QTC 20/441 moderate voltage criteria for LVH does [place] ST Configuration." Treatment: Cardizem bolus and Cardizem Gtt In your professional opinion, can you please clarify the type of Atrial Fibrillation, if known? Chronic/Permanent xxParoxysmal Persistent Other, please specify Unable to determine (Last Revision: December 2017) MTDD
== END 2020-08-12 00:24 | disposition expired | DRG 871 ==
LOC: EC 09:05 → 3SCARD 13:47 → 2SICU 16:25
PROVIDERS: ADMIT Internal Medicine Geriatric Medicine; ATTEND Internal Medicine Geriatric Medicine
PROC: 5A09357 Assistance with Respiratory Ventilation, Less than 24 Consecutive Hours, Continuous Positive Airway Pressure (ICD-10-PCS; principal; 2020-08-11)
DX: A41.89 Other specified sepsis (principal); I21.4 Non-ST elevation (NSTEMI) myocardial infarction; U07.1 COVID-19; N17.0 Acute kidney failure with tubular necrosis; J12.89 Other viral pneumonia; J96.00 Acute respiratory failure, unspecified whether with hypoxia or hypercapnia; I50.21 Acute systolic (congestive) heart failure; I46.9 Cardiac arrest, cause unspecified; Z66 Do not resuscitate; I48.0 Paroxysmal atrial fibrillation; R57.0 Cardiogenic shock; Z51.5 Encounter for palliative care; I25.10 Atherosclerotic heart disease of native coronary artery without angina pectoris; H91.90 Unspecified hearing loss, unspecified ear; F17.200 Nicotine dependence, unspecified, uncomplicated; R01.1 Cardiac murmur, unspecified; E87.5 Hyperkalemia; I35.0 Nonrheumatic aortic (valve) stenosis; E11.40 Type 2 diabetes mellitus with diabetic neuropathy, unspecified; Z79.4 Long term (current) use of insulin; Z80.7 Family history of other malignant neoplasms of lymphoid, hematopoietic and related tissues; Z98.890 Other specified postprocedural states; Z98.42 Cataract extraction status, left eye; Z98.41 Cataract extraction status, right eye; Z79.899 Other long term (current) drug therapy
CPT/HCPCS: 36415; 70450; 71045; 72125; 80053; 81001; 82550; 83605; 83735; 83880; 84132; 84484; 85025; 85610; 85730; 87040; 87502; 87635; 93005; 94640; 94660; 96365; 96366; 96368; 96375; 96376; 99291